=== PATIENT | male | born 1970 | race Hispanic/Latino ===

== ENCOUNTER 2018-04-27 20:48 | Emergency (ER) | payer BC ==
[2018-04-27 20:52] VITALS: BMI 27.1
[2018-04-27 20:57] VITALS: TEMP 98.2
[2018-04-27 21:39] LABS: BASO # 0.02 K/mm3 (0.0-2.0); BASO % 0.3 % (0.0-3.0); EOS # 0.1 (0.0-0.7); EOS % 1.9 % (1.5-5.0); GRAN # 3.84 (1.4-6.5); GRAN % 56.6 % (50.0-68.0); HEMOGLOBIN 15.1 g/dL (14.0-18.0); LYMPH # 2.2 (1.2-3.4); LYMPH % 32.6 % (22.0-35.0); MEAN CELL VOLUME 87.8 fl (80.0-105.0); MEAN CORPUSCULAR HEMOGLOBIN 31.2 pg (25.0-35.0); MEAN CORPUSCULAR HGB CONC 35.5 g/dl (31.0-37.0); MEAN PLATELET VOLUME 10.5 fl (7.0-11.0); MONO # 0.6 (0.1-0.6); MONO % 8.6 % (1.0-6.0); RBC 4.84 10^6/uL (3.5-6.1); RED CELL DISTRIBUTION WIDTH 12.3 % (11.5-14.5); WHITE BLOOD COUNT 6.8 10^3/ul (4.5-11.0)
[2018-04-27 21:49] LABS: ALB/GLOB RATIO 1.5 (1.1-1.8); ALBUMIN 4.4 g/dL (3.0-4.8); BLOOD UREA NITROGEN 17 mg/dL (7-21); CALCIUM 9.2 mg/dL (8.4-10.5); GFR NON-AFRICAN AMERICAN > 60
[2018-04-27 21:51] LABS: ALT/SGPT 34 U/L (7-56); AST/SGOT 37 U/L (17-59)
[2018-04-27 21:57] LABS: INR 0.92; PARTIAL THROMBOPLASTIN TIME 29.3 Seconds (25.1-36.5); PROTHROMBIN TIME 10.5 SECONDS (9.4-12.5)
[2018-04-27 22:01] LABS: TROPONIN I < 0.01 ng/mL
[2018-04-27 22:05] LABS: CK-MB 1.4 ng/mL (0.0-3.6)
[2018-04-27 22:13] LABS: D DIMER < 200 ng/mlDDU (0-243)
--- NOTE | 2018-04-27 23:26 | ED PDOC ---
Arrival/HPI - General Chief Complaint: Chest Pain Time Seen by Provider: 04/27/18 21:06 Historian: Patient - History of Present Illness Narrative History of Present Illness (Text): 04/27/18 23:23 47yo male with no pmhx who present with complaint of left sided chest pain since this evening. He reports mild/stabbing pain. states the pain improved enroute to ED. He states his blood pressure was elevated with the chest pain, so he came to ED. He denies any previous history. Denies SOB, diaphoresis, calf pain, dizziness, nausea, vomiting, back pain, any other complaint. Past Medical History - Provider Review Nursing Documentation Reviewed: Yes - Cardiac Hx Pacemaker: No - Neurological Hx Paralysis: No - Hematological/Oncological Hx Blood Transfusions: No - Musculoskeletal/Rheumatological Hx Musculoskeletal Disorders: No - Gastrointestinal Hx Gastroesophageal Reflux: Yes - Psychiatric Hx Emotional Abuse: No Hx Physical Abuse: No Hx Substance Use: No - Anesthesia Hx Anesthesia: Yes Hx Anesthesia Reactions: No Hx Malignant Hyperthermia: No - Suicidal Assessment Feels Threatened In Home Enviroment: No Family/Social History - Physician Review Nursing Documentation Reviewed: Yes Family/Social History: Unknown Family HX Smoking Status: Never Smoked Hx Alcohol Use: No Hx Substance Use: No Allergies/Home Meds Allergies/Adverse Reactions: Allergies No Known Allergies Allergy (Verified 04/27/18 20:57) Home Medications: Home Meds Medication Instructions Recorded Confirmed Esomeprazole Magnesium [Nexium] 40 mg PO ACD 12/27/14 04/27/18 Review of Systems - Physician Review All systems were reviewed & negative as marked: Yes - Review of Systems Constitutional: Normal Eyes: Normal ENT: Normal Respiratory: Normal Cardiovascular: Chest Pain. absent: Palpitations, Edema, Calf Pain Gastrointestinal: Normal Genitourinary Male: Normal Musculoskeletal: Normal Skin: Normal Neurological: Normal Endocrine: Normal Hemo/Lymphatic: Normal Psychiatric: Normal Physical Exam Vital Signs Reviewed: Yes Vital Signs Temp Pulse Resp BP Pulse Ox 04/27/18 20:55 98.2 F 54 L 16 100 04/27/18 20:53 133/72 Temperature: Afebrile Blood Pressure: Normal Pulse: Regular Respiratory Rate: Normal Appearance: Positive for: Well-Appearing, Non-Toxic, Comfortable Pain Distress: None Mental Status: Positive for: Alert and Oriented X 3 - Systems Exam Head: Present: Atraumatic, Normocephalic Pupils: Present: PERRL Extroacular Muscles: Present: EOMI Conjunctiva: Present: Normal Mouth: Present: Moist Mucous Membranes Neck: Present: Normal Range of Motion Respiratory/Chest: Present: Clear to Auscultation, Good Air Exchange. No: Respiratory Distress, Accessory Muscle Use, Wheezes, Decreased Breath Sounds, Rales, Retracting, Rhonchi Cardiovascular: Present: Regular Rate and Rhythm, Normal S1, S2. No: Murmurs Abdomen: No: Tenderness, Distention, Peritoneal Signs Back: Present: Normal Inspection Upper Extremity: Present: Normal Inspection. No: Cyanosis, Edema Lower Extremity: Present: Normal Inspection. No: Edema Neurological: Present: GCS=15, CN II-XII Intact, Speech Normal Skin: Present: Warm, Dry, Normal Color. No: Rashes Psychiatric: Present: Alert, Oriented x 3, Normal Insight, Normal Concentration Medical Decision Making ED Course and Treatment: 04/28/18 01:28 47yo male present with complaint of left sided chest pain. He was noted in any distress. Hemodynamically stable. ASA given in ED. Labs Car enzyme CXR EKG EKG Sinus richard @ 54bpm. NSTEMI. Chest xray - NAD first CE was negative and a repeat CE after 4hrs was also negative. Result was DW the pt. He have no familial history/cardiac risk factor for AR. He was strongly advised to f/u with a [employer] Numerical Control Programmer. Advised TRT ED for any new or worsening symptoms - Lab Interpretations Lab Results: 04/27/18 21:00 04/27/18 21:00 Lab Results 04/27/18 21:00: Sodium 139, Potassium 4.1, Chloride 104, Carbon Dioxide 26, Anion Gap 14, BUN 17, Creatinine 1.1, Est GFR ( Amer) > 60, Est GFR (Non- Af Amer) > 60, Random Glucose 108, Calcium 9.2, Magnesium 2.1, Total Bilirubin 0.5, AST 37, ALT 34, Alkaline Phosphatase 47, Lactate Dehydrogenase 624, Total Creatine Kinase 378 H, CK-MB (CK-2) 1.4, CK-MB (CK-2) % Cancelled, Troponin I < 0.01, Total Protein 7.4, Albumin 4.4, Globulin 3.0, Albumin/Globulin Ratio 1.5 04/27/18 21:00: PT 10.5, INR 0.92, APTT 29.3, D-Dimer, Quantitative < 200 04/27/18 21:00: WBC 6.8 D, RBC 4.84, Hgb 15.1, Hct 42.5, MCV 87.8, MCH 31.2, MCHC 35.5, RDW 12.3, Plt Count 223, MPV 10.5, Gran % 56.6, Lymph % (Auto) 32.6, Bradley % (Auto) 8.6 H, Eos % (Auto) 1.9, Baso % (Auto) 0.3, Gran # 3.84, Lymph # (Auto) 2.2, Bradley # (Auto) 0.6, Eos # (Auto) 0.1, Baso # (Auto) 0.02 - RAD Interpretation Radiology Orders: 04/27/18 21:29 CHEST PORTABLE [RAD] Stat - Medication Orders Current Medication Orders: Discontinued Medications Aspirin (Aspirin) 325 mg PO STAT STA Stop: 04/27/18 21:29 Last Admin: 04/27/18 21:34 Dose: 325 mg Disposition/Present on Arrival - Present on Arrival Any Indicators Present on Arrival: No History of DVT/PE: No History of Uncontrolled Diabetes: No Urinary Catheter: No History of Decub. Ulcer: No History Surgical Site Infection Following: None - Disposition Have Diagnosis and Disposition been Completed?: Yes Diagnosis: Chest pain Disposition: HOME/ ROUTINE Disposition Time: 01:45 Patient Plan: Discharge Patient Problems: Current Active Problems Problem Status Onset Chest pain Acute Condition: STABLE Discharge Instructions (ExitCare): Chest Pain (ED) Additional Instructions: Follow up with a [employer]ical Control Programmer/PMD Return to ED for any new or worsening symptoms Referrals: Edel Godoy, [Primary Care Provider] - Follow up with primary Kendell Dominguez MD [Staff Provider] - Follow up with primary Forms: [employer] (Lithuanian)
[2018-04-27 23:43] LABS: URINE BILIRUBIN NEGATIVE (NEGATIVE); URINE BLOOD TRACE-INTACT (NEGATIVE); URINE GLUCOSE (UA) NEGATIVE (NEGATIVE); URINE LEUKOCYTE ESTERASE NEGATIVE Leu/uL (NEGATIVE); URINE PROTEIN NEGATIVE mg/dL (<30 mg/dL); URINE UROBILINOGEN 0.2 E.U./dL (<1 E.U./dL)
[2018-04-27 23:46] LABS: URINE APPEARANCE CLEAR (CLEAR); URINE COLOR YELLOW (YELLOW)
[2018-04-27 23:50] LABS: URINE EPITHELIAL CELLS 0 - 2 /hpf (0-5); URINE RBC 0 - 2 /hpf (0-2); URINE WBC 0 - 2 /hpf (0-6)
[2018-04-28 00:26] LABS: BARBITURATES, UR NEGATIVE (NEGATIVE); BENZODIAZEPINES, UR NEGATIVE (NEGATIVE); OPIATES, UR NEGATIVE (NEGATIVE); PHENCYCLIDINE, UR NEGATIVE (NEGATIVE)
[2018-04-28 01:36] LABS: TROPONIN I < 0.01 ng/mL
[2018-04-28 01:50] LABS: CK-MB 1.2 ng/mL (0.0-3.6)
[2018-04-28 01:59] VITALS: BP 124/86; PULSE 69; RESP 18; O2SAT 99
--- NOTE | 2018-04-28 09:14 | RAD ---
Date of service: 04/27/2018 HISTORY: chest pain COMPARISON: No prior. FINDINGS: LUNGS: No active pulmonary disease. PLEURA: No significant pleural effusion identified, no pneumothorax apparent. CARDIOVASCULAR: Normal. OSSEOUS STRUCTURES: No significant abnormalities. VISUALIZED UPPER ABDOMEN: Normal. OTHER FINDINGS: None. IMPRESSION: No active disease.
--- NOTE | 2018-04-28 09:44 | CARD ---
APPROVED REPORT Date of service: 04/27/2018 EKG Measurement Heart [id number] <Conclusion> Sinus bradycardia PRWP
== END 2018-04-28 01:56 | disposition home or self-care (01) ==
LOC: ED 20:48
DX: R07.9 Chest pain, unspecified (principal)
CPT/HCPCS: 71045; 80053; 81001; 82550; 82553; 83615; 83735; 84484; 85025; 85378; 85610; 85730; 93005; 99283; G0480